=== PATIENT | male | born 1935 | race Caucasian/White ===

== ENCOUNTER → 2017-11-21 | Outpatient (CLI) | payer MEDICARE, OTHER ==
[~2017-11-21] VITALS: Ht 170.2 cm; Wt 76.4 kg
[~2017-11-21] MED LIST: BASAGLAR K100 UNIT/1 SQ; CLEOCIN HCL300 MG PO; COREG 3.123.125 MG/T PO; GLUCOPHAGE1000 MG PO; NEURONTIN300 MG/CAP PO; NIZORAL SHAMPO120 M1 TP; PRIL40 PO; TRULICITY0.75 MG/0. SQ; ZOCOR 40MG40 MG PO
[2017-11-21 12:38] VITALS: BP 145/75; PULSE 98; TEMP 99.3
== END ==
LOC: EUO 12:00
DX: Z45.2 Encounter for adjustment and management of vascular access device (principal); I73.9 Peripheral vascular disease, unspecified; E11.621 Type 2 diabetes mellitus with foot ulcer; L97.512 Non-pressure chronic ulcer of other part of right foot with fat layer exposed; T14.8XXA Other injury of unspecified body region, initial encounter; L08.9 Local infection of the skin and subcutaneous tissue, unspecified; Z89.411 Acquired absence of right great toe
CPT/HCPCS: C1751